=== PATIENT | male | born 1975 | race Caucasian/White ===

== ENCOUNTER 2024-11-16 20:09 | Emergency (ER) | payer MEDICAID ==
[~2024-11-16] VITALS: Ht 170.2 cm; Wt 95.0 kg
[2024-11-16 20:18] VITALS: TEMP 98.3; O2SAT 98
[2024-11-16 21:44] LABS: CALCIUM 9.8 mg/dL (8.7-10.4)
[2024-11-16 21:49] LABS: CREATININE 1.3 mg/dL (0.6-1.3)
[2024-11-16 21:57] LABS: BASOPHILS % 0.5 % (0.0-2.0); EOSINOPHILS % 1.9 % (0.0-5.0); HEMATOCRIT. 44.8 % (42.0-52.0); HEMOGLOBIN. 16.2 g/dL (14.0-18.0); LYMPHOCYTES % 26.4 % (20.0-50.0); MEAN CORPUSCULAR HEMOGLOBIN 32.8 pg (28.0-32.0); MEAN CORPUSCULAR HGB CONC 36.2 g/dL (31.0-37.0); MEAN CORPUSCULAR VOLUME 90.7 fL (80.0-94.0); MEAN PLATELET VOLUME 9.3 fl (7.4-10.4); MONOCYTES % 8.1 % (2.0-8.0); NEUTROPHILS % 63.1 % (40.0-76.0); PLATELET 247 x1000/uL (130-400); RED BLOOD CELL COUNT 4.93 mill/uL (4.7-6.1); RED CELL DISTRIBUTION WIDTH 13.4 % (11.6-14.6); WHITE BLOOD COUNT 10.8 x1000/uL (4.5-11.0)
[2024-11-16 21:58] LABS: DIFFERENTIAL COMMENT 1
[2024-11-16 23:23] VITALS: BP 130/91; PULSE 86; RESP 16; O2SAT 95
== END 2024-11-16 23:20 | disposition home or self-care (01) ==
LOC: ER 20:09
DX: R03.0 Elevated blood-pressure reading, without diagnosis of hypertension (principal); R23.2 Flushing
CPT/HCPCS: 80048; 85025; 36415; 93005; 99283; Z7610 ×2